=== PATIENT | male | born 1960 | race Caucasian/White ===

== ENCOUNTER 2019-05-14 15:04 | Emergency (ER) | payer MEDICAID ==
[~2019-05-14] VITALS: Ht 172.7 cm; Wt 100.0 kg
[~2019-05-14 15:04] MED LIST: DEPAKOTE; DILAUDID; KLONOPIN; METFORMIN
[2019-05-14] MEDS ORDERED: GABAPENTIN 300MG CAPSULE PO ONE (16:00)
[2019-05-14] MEDS ORDERED: HYDROCODONE/ACETAMINOPHEN 5/325MG TABLET PO ONE ×2 (16:00→18:15)
[2019-05-14 16:46] LABS: CHLORIDE 107 mEq/L (98-107)
[2019-05-14 16:47] LABS: BASOPHILS % 0.8 % (0.0-2.0); EOSINOPHILS % 3.2 % (0.0-5.0); HEMATOCRIT. 43.2 % (42.0-52.0); HEMOGLOBIN. 14.9 g/dL (14.0-18.0); LYMPHOCYTES % 32.8 % (20.0-50.0); MEAN CORPUSCULAR HEMOGLOBIN 29.3 pg (28.0-32.0); MEAN CORPUSCULAR VOLUME 84.9 fL (80.0-94.0); MEAN PLATELET VOLUME 6.9 fl (7.4-10.4); MONOCYTES % 10.2 % (2.0-8.0); PLATELET 292 x1000/uL (130-400); RED BLOOD CELL COUNT 5.08 mill/uL (4.7-6.1); RED CELL DISTRIBUTION WIDTH 14.9 % (11.6-14.6)
[2019-05-14] MEDS ORDERED: LORAZEPAM 1MG TABLET PO ONE (21:30)
[2019-05-15 08:15] VITALS: BP 126/79
== END 2019-05-15 09:30 | disposition home or self-care (01) ==
LOC: ER 15:04
DX: R00.2 Palpitations (principal); Z59.0 Homelessness; F31.9 Bipolar disorder, unspecified; I10 Essential (primary) hypertension; F20.9 Schizophrenia, unspecified; Z88.0 Allergy status to penicillin; Z88.8 Allergy status to other drugs, medicaments and biological substances; Z88.6 Allergy status to analgesic agent; Z88.9 Allergy status to unspecified drugs, medicaments and biological substances
CPT/HCPCS: 36415; 71045; 84443; 84484; 93005; 99284